=== PATIENT | male | born 1955 | race Caucasian/White ===

== ENCOUNTER → 2016-12-05 | Outpatient (CLI) | payer BC ==
[~2016-12-05] MED LIST: PROZAC PO; TRAZODONE HCL100 MG PO
--- NOTE | ~2016-12-05 | MR113 ---
[facility] A Service of [facility] & [facility] RADIOLOGY TEXT RESULTS PATIENT: TONIA BRUCE LOCATION: [facility] : 51 UNIT #: [id number] AGE: [address]: Amelia Ragsdale MD SEX: M ORDER DR: [id number] [address] [address] [id number] O MR#: [id number] Acc #: [id number] NAME: TONIA BRUCE : 1955 SEX: M STUDY DATE/TIME: 12/05/2016 9:16 UNIT: [facility] ROOM: STUDY DESCRIPTION: MR Lumbar Wo Contrast Attending Physician: Amelia Ragsdale M.D. Referring Physician: Amelia Ragsdale M.D. Ordering Physician: Amelia Ragsdale M.D. Primary Care Physician: Amelia Ragsdale M.D. MRI CENTER REPORT This report is preliminary unless electronic signature is present. EXAM Lumbar spine MRI without contrast. HISTORY Complains of increasing neck pain into both shoulders and between scapulae worse for 1 year. Complains of chronic low back pain for 10 years since L1 fracture, now increasing low back pain into left greater than right leg for 1 year. COMMENT There is grade 1 anterolisthesis of L4 on L5 secondary to facet arthritis. This measures about 3-4 mm. There is chronic anterior wedging L1 vertebral body with about 30% loss of posterior vertebral body height and about 40% to 50% loss of anterior vertebral body height. Mild posterior-superior cortical buckling is noted and there is superior endplate Schmorl node formation. This was likely a benign osteoporotic compression fracture given that it has healed. Bone marrow signal intensity is unremarkable allowing for minor marrow endplate degenerative changes, 5-1 level. Conus medullaris terminates at L1-2 and is normal. At L1-2, mild broad-based posterior disc bulge, mild effacement of the anterior thecal sac. Mild inferior foraminal narrowing, but no canal stenosis. At L2-3, mild broad-based posterior disc bulge. Mild facet hypertrophy. Mild effacement of the anterior thecal sac right greater than left. No central canal stenosis. Mild inferior foraminal narrowing right greater than left. At L3-4, there is mild facet degenerative bilaterally. Mild ligamentum flavum thickening. Mild broad-based posterior disc bulge. Some STS. [facility] A Service of [facility] & [facility] RADIOLOGY TEXT RESULTS PATIENT: TONIA BRUCE LOCATION: [facility] : 51 UNIT #: [id number] AGE: [address]: Amelia Ragsdale MD SEX: M ORDER DR: prominence of posterior dural fat pad and the combination of findings result in very mild canal stenosis. Mild inferior foraminal narrowing bilaterally. L4-5, severe facet arthritis bilaterally. Mild ligamentum flavum thickening with broad-based posterior disc bulge extending to the inferior foramina. There is mass effect on the bilateral-lateral recesses and vzbx-fw-vsdbpgoh central canal stenosis. Also kicq-fb-xyujqdui left and right foraminal narrowing. At L5-S1, moderate left yqgr-bg-dqjvqcxq right-sided facet degenerative change with mild concentric desiccated disc bulge and endplate spondylosis. Mild mass effect on the anterior thecal sac. Auli-ym-pznefhho right, moderate left-side foraminal narrowing. Loss of disc height, disc material, endplate spondylosis, and facet degenerative change all contribute to the foraminal impingement. IMPRESSION 1. Lumbar degenerative changes are detailed above with multiple level canal and foraminal compromise. Canal stenosis most prominent at the L4-5 level estimated ekrr-md-sybuiptm. There is also facet arthritis at the 4-5 level severe, resulting in grade 1 anterolisthesis of 4 on 5. Please refer to the qcmon-yn-nnowj description of canal and foraminal impingement. 2. There is a chronic compression fracture at L1. Healed and likely due to osteoporosis. Please correlate further clinically. Dictated by... Judith Corrales M.D. THIS IS AN ELECTRONICALLY VERIFIED REPORT Judith Corrales M.D. at 12/10/2016 8:34 AM KIRIT/taniya TD: 12/05/2016 16:38 JOB #: [id number] MRI CENTER REPORT
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
== END | disposition home or self-care (01) ==
LOC: SMRI 08:20
DX: M54.12 Radiculopathy, cervical region (principal); M54.16 Radiculopathy, lumbar region; M51.36 Other intervertebral disc degeneration, lumbar region; M47.816 Spondylosis without myelopathy or radiculopathy, lumbar region; M50.30 Other cervical disc degeneration, unspecified cervical region; M48.02 Spinal stenosis, cervical region
CPT/HCPCS: 72141; 72148